=== PATIENT | male | born 1975 | race Caucasian/White ===

== ENCOUNTER 2019-03-02 22:24 | Emergency (ER) | payer OTHER ==
[2019-03-02] MEDS ORDERED: ASPIRIN 81 MG CHEWABLE TAB PO ONE (22:33)
[2019-03-02] MEDS ORDERED: NS 1,000 ML IV ONE (22:33)
--- NOTE | 2019-03-02 22:33 | EDPHY ---
H & P Stated Complaint: Chest discomfort-worse earlier-similar to a few weeks ago Time Seen by Provider: 03/02/19 22:33 HPI/ROS: HPI CHIEF COMPLAINT: Chest pain HISTORY OF PRESENT ILLNESS: 43-year-old male, otherwise healthy denies any significant medical history presents to the emergency room with chest pain. He describes as a pressure sensation left side of his chest. This happened approximately 2 hr ago it is since gotten much better. Completely gone at this time. He denies pleuritic pain. States he has had this multiple episodes of this, one episode 1 year a go, and one episode 3 weeks a go. Currently doing better. Resting. NAD. Denies CP upon arrival. Past Medical History: Denies significant medical history Past Surgical History: Denies significant surgical history Social History: Denies drugs alcohol tobacco. Works from home. Family History: Noncontributory ROS REVIEW OF SYSTEMS: 10 Systems were reviewed and negative with the exception of the elements mentioned in the history of present illness. Exam Constitutional nontoxic no acute distress, vital signs stable, triage nursing summary reviewed, vital signs reviewed, awake/alert. Eyes normal conjunctivae and sclera, EOMI, PERRLA. HENT normal inspection, atraumatic, moist mucus membranes, no epistaxis, neck supple/ no meningismus, no raccoon eyes. Respiratory clear to auscultation bilaterally, normal breath sounds, no respiratory distress, no wheezing. Cardiovascular rate normal, regular rhythm, no murmur, no edema, distal pulses normal. Gastrointestinal soft, non-tender, no rebound, no guarding, normal bowel sounds, no distension, no pulsatile mass. Genitourinary no CVA tenderness. Musculoskeletal no midline vertebral tenderness, full range of motion, no calf swelling, no tenderness of extremities, no meningismus, good pulses, neurovascularly intact. Skin pink, warm, & dry, no rash, skin atraumatic. Neurologic awake, alert and oriented x 3, AAOx3, moves all 4 extremities equally, motor intact, sensory intact, CN II-XII intact, normal cerebellar, normal vision, normal speech. Psychiatric normal mood/affect. Heme/Lymph/Immune no lymphadenopathy. Differential Diagnosis: Differential diagnosis includes but is not limited to: ACS, atypical chest pain, pneumothorax, pneumonia, pulmonary embolism, aortic dissection, congestive heart failure, tumor, musculoskeletal pain, esophageal pain, GERD, peptic ulcer disease, pancreatitis Medical Decision Making: Plan for this patient IV establishment with blood draw , EKG, troponin rule out acute coronary syndrome, chest x-ray, full athletic monitor, full-dose aspirin, and re-evaluate. Re-evaluation: 43-year-old male here in the emergency room with left-sided chest pressure. Radiates to his jaw and arm. Otherwise he has no significant cardiovascular risk factors. Will obtain EKG and troponin rule out acute coronary syndrome. EKG interpretation by me on record in [employer] system. Impression time of EKG 2248, sinus rhythm rate of 94 no signs of acute ischemia. A initial troponin was negative. Patient's repeat EKG at 3:34 a.m. Is sinus rhythm rate of 64, there is no signs of acute ischemia no ST elevation no ST depression no T-wave abnormalities. No acute ischemia. 2nd troponin is pending. His initial EKG was done at almost 11:00 a.m., is repeat EKG done at 3:34 a.m. Without any acute changes. And nonischemic. 3:39 a.m. Patient resting comfortably no acute distress. Patient had a repeat EKG at 3:34 a.m., sinus rhythm rate of 64 without any signs of acute ischemia. Dimer negative EKGS negative Trops Negative. 6:30 a.m. Patient re-evaluated resting comfortably denies any chest pain. The patient has had stable EKGs here without any signs of acute ischemia. He has had 3-troponins. He has not had Any recurrent chest pain. He really has not had any cardiovascular risk factors. His story was somewhat concerning and this is what prompted me to keep him in the emergency room for close to 8 hr to make sure does not have recurrent chest pain, or ischemic EKGs or elevated troponins. His risk factors only include his story. He has no underlying coronary artery disease, no hypertension, no hyperlipidemia. I do recommend he follows up closely with cardiology. I do feel comfortable allowing him to be discharged from the emergency room. I do recommend he follows up with Cardiology on Tuesday for outpatient stress testing The patient does understand return emergency room if develops worsening chest pain, shortness of breath, or not doing well over the weekend. He is comfortable and agreeable for this plan. EKG interpretation by me on record in [employer] system. Impression time of EKG 6:06 a.m., sinus rhythm rate of 60, no signs of acute ischemia. This is unchanged from his previous EKGs. Troponins x3 negative. HEART Pathway for Early Discharge in Acute Chest Pain from [employer] on 2018 All calculations should be rechecked by clinician prior to use RESULT SUMMARY: 1 points HEART Pathway Score Low risk 0.91.7% 30-day MACE Repeat troponin at 3 hours and if negative, discharge home with outpatient follow-up. INPUTS: History > 1 = Moderately suspicious EKG > 0 = Normal Age > 0 = <45 Risk factors > 0 = No known risk factors Initial troponin > 0 = normal limit Source: Patient - Personal History Current Tetanus Diphtheria and Acellular Pertussis (TDAP): Yes - Medical/Surgical History Hx Asthma: No Hx Chronic Respiratory Disease: No Hx Diabetes: No Hx Cardiac Disease: No Hx Renal Disease: No Hx Cirrhosis: No Hx Alcoholism: No Hx HIV/AIDS: No Hx Splenectomy or Spleen Trauma: No Other PMH: medical Hiatal Hernia. surgery none - Social History Smoking Status: Never smoked Constitutional: Initial Vital Signs Temperature (C) 37.1 C 03/02/19 22:26 Heart Rate 99 03/02/19 22:26 Respiratory Rate 16 03/02/19 22:26 Blood Pressure 151/100 H 03/02/19 22:26 O2 Sat (%) 94 03/02/19 22:26 O2 Delivery Mode Room Air Allergies/Adverse Reactions: No Known Allergies Allergy (Unverified 03/02/19 22:25) Home Medications: Medication Instructions Recorded NK [No Known Home Meds] 02/14/14 Medical Decision Making - Data Points Laboratory Results: Laboratory Results 03/02/19 22:40 03/02/19 22:40 Medications Given: Discontinued Medications Aspirin (Aspirin) 324 mg PO EDNOW ONE Stop: 03/02/19 22:34 Last Admin: 03/02/19 22:51 Dose: 324 mg Sodium Chloride (Ns) 1,000 mls @ 0 mls/hr IV EDNOW ONE; Wide Open PRN Reason: Protocol Stop: 03/02/19 22:34 Last Admin: 03/02/19 22:51 Dose: 1,000 mls Point of Care Test Results: Chemistry 03/03/19 03/03/19 03/02/19 06:14 03:34 22:43 POC Troponin I 0.00 ng/mL ng/mL 0.00 ng/mL ng/mL 0.01 ng/mL ng/mL (0.00-0.08) (0.00-0.08) (0.00-0.08) Departure - Departure Disposition: Home, Routine, Self-Care Clinical Impression: Chest pain Qualifiers: Chest pain type: unspecified Qualified Code(s): R07.9 - Chest pain, unspecified Condition: Good Instructions: Chest Pain (ED) Additional Instructions: 1. Return to the emergency room immediately if you develops chest pain or chest pressure. Or you have any worsening symptoms 2. Please follow up with Cardiology call there and schedule a follow-up stress test. 3. Return if you have a recurrence of symptoms Referrals: Patient,NotPresent [Unknown] - As per Instructions Mynor Martinez MD [Medical Doctor] - As per Instructions
[2019-03-02 22:50] LABS: PLATELET COUNT 305 10^3/uL (150-400)
[2019-03-02 23:02] LABS: INR 0.94 (0.83-1.16); PROTIME(PATIENT) 12.2 SEC (12.0-15.0)
[2019-03-03 06:45] VITALS: BP 127/82
--- NOTE | 2019-03-03 08:12 | CPEKG ---
Test Reason : OPEN Blood Pressure : / mmHG Vent. Rate : 090 BPM Atrial Rate : 090 BPM P-R Int : 191 ms QRS Dur : 094 ms QT Int : 333 ms P-R-T Axes : 027 028 210 degrees QTc Int : 408 ms Sinus rhythm Left atrial enlargement Nonspecific T abnormalities, lateral leads Lead(s) III were not used for morphology analysis Confirmed by Nick Coe ([id number]) on 03/03/2019 8:11:56 AM Referred By: Nick Coe Confirmed By:Nick Coe
--- NOTE | 2019-03-03 08:12 | CPEKG ---
Test Reason : OPEN Blood Pressure : / mmHG Vent. Rate : 060 BPM Atrial Rate : 059 BPM P-R Int : 204 ms QRS Dur : 098 ms QT Int : 405 ms P-R-T Axes : 064 087 029 degrees QTc Int : 405 ms Sinus rhythm Borderline prolonged NH interval Confirmed by Nick Coe ([id number]) on 03/03/2019 8:11:55 AM Referred By: Nick Coe Confirmed By:Nick Coe
--- NOTE | 2019-03-03 08:12 | CPEKG ---
Test Reason : OPEN Blood Pressure : / mmHG Vent. Rate : 064 BPM Atrial Rate : 064 BPM P-R Int : 198 ms QRS Dur : 098 ms QT Int : 384 ms P-R-T Axes : 059 081 032 degrees QTc Int : 396 ms Sinus rhythm Confirmed by Nick Coe ([id number]) on 03/03/2019 8:11:55 AM Referred By: Nick Coe Confirmed By:Nick Coe
== END 2019-03-03 06:44 | disposition home or self-care (01) ==
DX: R07.9 Chest pain, unspecified (principal); E86.9 Volume depletion, unspecified
CPT/HCPCS: 84484-ER